=== PATIENT | female | born 1950 | race Caucasian/White ===

== ENCOUNTER 2017-10-29 09:33 | Day surgery (SDC) | payer MEDICARE ==
[2017-10-28 16:42] LABS: BASOPHILS # (AUTO) 0.1 X10'3 (0-0.2); BASOPHILS % (AUTO) 1.4 % (0-1); EOSINOPHILS # (AUTO) 0.2 X10'3 (0-0.9); EOSINOPHILS % (AUTO) 3.6 % (0-6); HEMATOCRIT 35.9 % (35.0-45.0); HEMOGLOBIN 11.9 g/dl (12.0-16.0); LYMPHOCYTES # (AUTO) 0.7 X10'3 (1.1-4.8); LYMPHOCYTES % (AUTO) 10.8 % (21-51); MEAN CORPUSCULAR HEMOGLOBIN 27.4 PG (27.0-31.0); MEAN CORPUSCULAR HGB CONC 33.2 % (33.0-36.5); MEAN CORPUSCULAR VOLUME 82.3 FL (78-98); MEAN PLATELET VOLUME 7.6 FL (7.4-10.4); MONOCYTES # (AUTO) 0.6 X10'3 (0-0.9); MONOCYTES % (AUTO) 9.2 % (2-12); NEUTROPHILS # (AUTO) 4.8 X10'3 (1.8-7.7); PLATELET COUNT 219 X10'3 (140-440); RED BLOOD COUNT 4.35 X10'6 (4.20-5.60); RED CELL DISTRIBUTION WIDTH 15.4 % (11.5-14.5); WHITE BLOOD COUNT 6.3 X10'3 (4.5-11.0)
[2017-10-28 16:55] LABS: PARTIAL THROMBOPLASTIN TIME 29 SECONDS (22-32); PROTHROMBIN TIME 10.3 SECONDS (9.0-12.0)
[2017-10-28 17:00] LABS: ALBUMIN 3.5 G/DL (3.4-5.0); ANION GAP 8 (8-16); BLOOD UREA NITROGEN 34 MG/DL (7-18); BUN/CREATININE RATIO 24.6 (6.6-38.0); CALCIUM 9.3 MG/DL (8.5-10.1); CHLORIDE 102 MMOL/L (99-107); CREATININE 1.38 MG/DL (0.40-0.90); GLUCOSE 86 MG/DL (70-104); SODIUM 136 MMOL/L (135-145); TOTAL CARBON DIOXIDE 25.6 MMOL/L (24-32); eGFR 38 ML/MIN
[2017-10-29] VITALS (10 sets, daily range): BP systolic 112–158; BP diastolic 53–87
[~2017-10-29] VITALS: Ht 157.5 cm; Wt 87.1 kg
[2017-10-29] MEDS ORDERED: sodium bicarbonate (8.4%) inj. 150 MEQ in sodium chloride 0.45% 1,000 ML IV SCH (09:55)
[2017-10-29] MEDS ORDERED: acetylcysteine 200 MG/ml 4ml vial PO ONE (09:55)
[2017-10-29] MEDS ORDERED: normal saline 1000ml 1,000 ML IV SCH (10:05)
[2017-10-29] MEDS ORDERED: diphenhydrAMINE 25mg capsule PO PRN (10:05)
[2017-10-29] MEDS ORDERED: LORazepam 0.5 MG tablet PO PRN (10:05)
[2017-10-29] MEDS ORDERED: LIDOcaine/PRILOcaine 5gm cream TP ONE (10:05)
[2017-10-29] MEDS ORDERED: VENL75TA90 PO (10:41)
[2017-10-29] MEDS ORDERED: METO100T14 PO (10:41)
[2017-10-29] MEDS ORDERED: CYCL-394 PO (10:41)
[2017-10-29] MEDS ORDERED: AMLO2.5T2 PO (10:41)
[2017-10-29] MEDS ORDERED: GABA600T2 PO (10:41)
[2017-10-29] MEDS ORDERED: VENL-191 PO (10:41)
[2017-10-29] MEDS ORDERED: ZOLP5TAB8 PO (10:41)
[2017-10-29] MEDS ORDERED: MELO-102 PO (10:41)
[2017-10-29] MEDS ORDERED: verapamil 2.5 mg/ml inj IV ONE (12:03)
[2017-10-29] MEDS ORDERED: fentaNYL/PF 50MCG/1 ML 2ML syringe ONE (12:04)
[2017-10-29] MEDS ORDERED: midazolam 2 mg/2 ml injection ONE (12:04)
[2017-10-29] MEDS ORDERED: heparin 1,000unit/ml 10ml vial 10 ML ONE (12:04)
[2017-10-29] MEDS ORDERED: iohexol 350MG/ML 100ml bottle IV ONE (12:04)
[2017-10-29] MEDS ORDERED: nitroGLYCERIN-Tridil 50MG/D5W 250 ML IV ONE (12:04)
[2017-10-29] MEDS ORDERED: iohexol 350 MG/ML 50ML vial IV ONE (12:04)
[2017-10-29] MEDS ORDERED: lidocaine 1%/epinephrine 1:100,000 injection 50ml vial ONE (12:04)
[2017-10-29] MEDS ORDERED: heparin 1,000 UNITS/NS 500ml 500 ML ONE (12:05)
[2017-10-29] MEDS ORDERED: LIDOcaine 1% 30ml preserv. free vial ONE (12:32)
[2017-10-29] MEDS ORDERED: diltiazem 5mg/ml 5ml inj. IV ONE (12:52)
== END 2017-10-29 18:30 | disposition home or self-care (01) ==
LOC: SSTAY O 09:33
PROVIDERS: ATTEND Internal Medicine Cardiovascular Disease
DX: I25.10 Atherosclerotic heart disease of native coronary artery without angina pectoris (principal); I35.0 Nonrheumatic aortic (valve) stenosis; I44.7 Left bundle-branch block, unspecified; I10 Essential (primary) hypertension; E78.5 Hyperlipidemia, unspecified; M79.7 Fibromyalgia; F32.9 Major depressive disorder, single episode, unspecified; G47.33 Obstructive sleep apnea (adult) (pediatric); Z79.891 Long term (current) use of opiate analgesic; Z87.891 Personal history of nicotine dependence; Z87.442 Personal history of urinary calculi; Z79.899 Other long term (current) drug therapy; Z88.8 Allergy status to other drugs, medicaments and biological substances; Z80.7 Family history of other malignant neoplasms of lymphoid, hematopoietic and related tissues
CPT/HCPCS: 36415; 80048; 85025; 85610; 85730; 93005; 93458; 99152; 99153; A6257; C1769; J1644; J2250; J3010; J3490; J7030; Q0163; Q9967; A4620